=== PATIENT | female | born 1995 | race Caucasian/White ===

== ENCOUNTER 2016-06-15 20:48 | Emergency (ER) | payer OTHER ==
[~2016-06-15] VITALS: Ht 167.6 cm; Wt 81.2 kg
[2016-06-15 20:53] VITALS: BP 133/86
[2016-06-15] MEDS ORDERED: PINK LADY ENEMA 1,000 ML PR ONE (22:30)
== END 2016-06-16 00:03 | disposition home or self-care (01) ==
LOC: ED 23:40
DX: K59.00 Constipation, unspecified (principal); J45.909 Unspecified asthma, uncomplicated
CPT/HCPCS: 74022; 99283